=== PATIENT | male | born 2000 | race African-American/Black ===

== ENCOUNTER 2021-01-19 11:52 | Emergency (ER) | payer OTHER ==
[~2021-01-19] VITALS: Ht 175.3 cm; Wt 83.6 kg
[2021-01-19 13:35] VITALS: BP 118/64
== END 2021-01-19 13:44 | disposition home or self-care (01) ==
LOC: EMS 11:55
DX: Z11.3 Encounter for screening for infections with a predominantly sexual mode of transmission (principal)
CPT/HCPCS: 87491; 87591; 99283

== ENCOUNTER 2021-04-08 15:48 | Emergency (ER) | payer OTHER ==
[~2021-04-08] VITALS: Ht 175.3 cm; Wt 81.8 kg
[2021-04-08 18:09] LABS: APPEARANCE,URINE CLEAR (CLEAR); BILIRUBIN,URINE NEGATIVE (NEGATIVE); GLUCOSE, URINE (UA) NEGATIVE (NEGATIVE); KETONES,URINE NEGATIVE (NEGATIVE); LEUKOCYTE ESTERASE ,URINE SMALL (NEGATIVE); NITRATE,URINE NEGATIVE (NEGATIVE); OCCULT BLOOD,URINE NEGATIVE (NEGATIVE); PH,URINE 6.5 (5.0-8.0); PROTEIN,URINE NEGATIVE (NEGATIVE); UROBILINOGEN,URINE 0.2 mg/dL (<=1.0)
[2021-04-08 18:18] LABS: RBC,URINE None Seen /HPF (0-2)
[2021-04-08 18:19] LABS: BACTERIA,URINE None Seen /HPF (None Seen)
[2021-04-08 19:03] VITALS: BP 124/60
[2021-04-08] MEDS: LIDOCAINE/PF 1% 2 ML VIAL IM ONE (19:20)
== END 2021-04-08 20:02 | disposition home or self-care (01) ==
LOC: EMS 15:51
DX: N34.2 Other urethritis (principal)
CPT/HCPCS: 81001; 87086; 87491; 87591; 96372; 99283; J0690; J3490